=== PATIENT | male | born 1995 | race Caucasian/White ===

== ENCOUNTER 2021-07-21 12:58 | Emergency (ER) | payer OTHER, SELFPAY ==
--- NOTE | ~2021-07-21 | XR_ITS ---
EXAMINATION: XR hand RT min 3V INDICATION: Right hand pain, initial encounter TECHNIQUE: Three views of the right hand are obtained. COMPARISON: None available FINDINGS: There is an acute, traumatic, closed, oblique fracture in the distal shaft/head of the fift h metacarpal. There are 30 degrees of palmar angulation at the fracture site. Soft tissue swelling wynn rrounds the fracture. The joint spaces are maintained. No additional acute osseous abnormality is brian ntified. IMPRESSION: 1. Acute fracture of the distal shaft/head of the fifth metacarpal. Reviewed, dictated and finalized at location A. IT ASSOCIATE
[2021-07-21 13:06] VITALS: BP 151/78; PULSE 102; RESP 16; TEMP 37.3; O2SAT 98
--- NOTE | 2021-07-21 13:27 | ED.UPPEXIN ---
HPI - Extremity Injury (Upper) General Chief Complaint: Extremity Injury, Upper Stated Complaint: Right Hand Injury Source: patient Mode of arrival: ambulatory Limitations: no limitations History of Present Illness HPI narrative: 26-year-old male presented for complaint of right hand bruising and swelling after injury yesterday. He states he was playing football and struck his hand on a wall. Since then he has developed swelling, pain, and bruising. States pain is minimal. Has not taken anything for pain. Denies numbness, tingling, weakness of the hand. Unable to close hand for fist. Related Data Home Medications Medication Instructions Recorded Confirmed insulin lispro [Humalog U-100 15 unit SUBCUT TID 07/21/21 07/21/21 Insulin] Allergies Allergy/AdvReac Type Severity Reaction Status Date / Time No Known Allergies Allergy Verified 07/21/21 13:14 Review of Systems Review of Systems: CONSTITUTIONAL: Denies body aches, fever, chills, or sweats. EYES: Denies visual changes, redness, or discharge. ENT: Denies rhinorrhea, congestion, sore throat, or otalgia. CARDIOVASCULAR: Denies chest pain, palpitations, or edema. RESPIRATORY: Denies cough or dyspnea. GASTROINTESTINAL: Denies abdominal pain, nausea, vomiting, or diarrhea. GENITOURINARY: Denies dysuria or hematuria. SKIN: Denies rash, itching, or wounds. MUSCULOSKELETAL: Endorses right hand pain, swelling, bruising. NEUROLOGIC: Denies headache, numbness, tingling, or weakness. PSYCH: Denies depression or anxiety. All systems reviewed & are unremarkable except as noted in HPI and below PMFSH Comments At time of signature, I have reviewed and agree with nursing past medical, surgical, social and family history unless otherwise noted. Please see nursing chart for further information. There is no relevant family history pertinent to the presenting complaint Exam Narrative: GENERAL: Well-appearing, well-nourished, and in no acute distress. HEAD: Normocephalic EYES: PERRLA, conjunctivae clear NECK: Supple. CHEST: Speaks in full sentences. No respiratory distress. HEART: Regular rate and rhythm. Normal and equal peripheral pulses. EXTREMITIES: Right hand and digits of hand have normal strength and sensation. Range of motion limited, unable to close fist right hand. Moderate bruising and swelling to right dorsal hand No clubbing, cyanosis noted. Skin intact. Normal digital cascade with flexion of fingers. Normal sensation of each side of finger. Good capillary refill and radial pulse. Distal capillary refill less than 3 seconds. SKIN: Warn, dry, intact, pink. No rash NEURO: Alert and oriented x3. PSYCH: Normal mood and affect Course Course Level of Care: Express Care Visit Vital Signs Vital signs: Vital Signs Temperature 99.1 F 07/21/21 13:06 Pulse Rate 102 H 07/21/21 13:06 Respiratory Rate 16 07/21/21 13:06 Blood Pressure 151/78 H 07/21/21 13:06 Pulse Oximetry 98 07/21/21 13:06 Temperature 99.1 F 07/21/21 13:06 Pulse Rate 102 H 07/21/21 13:06 Respiratory Rate 16 07/21/21 13:06 Blood Pressure 151/78 H 07/21/21 13:06 Pulse Oximetry 98 07/21/21 13:06 Reviewed Procedures Orthopedic Splinting/Casting Injury #1: Splinting/Casting Date: 07/21/21 Splinting/Casting Time: 13:55 Side: right Upper Extremity Injury Location: hand Splint: customized in ED OCL: ulnar gutter Pre-Procedure Neuro Vascular Exam: normal Post-Procedure Neuro Vascular Exam: normal Additional Comments: applied by quality lab technician MDM - Extremity Injury (Upper) MDM Narrative Medical decision making narrative: Patient's injury and pain appear to be of musculoskeletal nature. No concerns for compartment syndrome. No concern for tendon or nerve injury. Patient is treatable on an outpatient basis. Xray reviewed with pt. Imaging Data Attestation: I personally reviewed and interpreted this imaging study as
== END 2021-07-21 14:21 | disposition home or self-care (01) ==
PROVIDERS: Emergency Provider Nurse Practitioner Family; PCP Internal Medicine Infectious Disease
DX: S62.326A Displaced fracture of shaft of fifth metacarpal bone, right hand, initial encounter for closed fracture (principal); W22.01XA Walked into wall, initial encounter; Y93.61 Activity, american tackle football
CPT/HCPCS: 29125; 73130; 99214; G0463

== ENCOUNTER 2021-07-24 16:04 | Outpatient (CLI) | payer OTHER, SELFPAY ==
--- NOTE | ~2021-07-24 | XR_ITS ---
EXAMINATION: XR hand RT min 3V DATE: 07/24/2021 16:24 INDICATION: Fracture of fifth metacarpal, post closed reduction. TECHNIQUE: 3 views of right hand were obtained. COMPARISON: Right hand radiographs 07/21/2021 FINDINGS: There is a comminuted fracture of neck of fifth metacarpal. The main distal fracture fragme nt demonstrates impaction and 29 degrees palmar angulation. Joint spaces are normal. Splint material is noted. IMPRESSION: 1. Comminuted fracture of neck of fifth metacarpal. Reviewed, dictated and finalized at location B. [employer]IO MANAGER
== END 2021-07-24 16:05 | disposition home or self-care (01) ==
PROVIDERS: PCP Internal Medicine Infectious Disease; Visit Provider Plastic Surgery
DX: S62.336D Displaced fracture of neck of fifth metacarpal bone, right hand, subsequent encounter for fracture with routine healing (principal); X58.XXXD Exposure to other specified factors, subsequent encounter
CPT/HCPCS: 73130

== ENCOUNTER 2022-01-06 17:41 | Emergency (ER) | payer OTHER, SELFPAY ==
--- NOTE | ~2022-01-06 | XR_ITS ---
EXAM: XR hand RT min 3V DATE: 01/06/2022 18:17 HISTORY: HYPEREXTENDED 01/03/22. ATTN: 5TH DIGIT PIP JT. . COMPARISON: 07/24/2021. FINDINGS: Normal mineralization. Mildly comminuted nondisplaced fracture of the fifth proximal phala nge. Old healed right fifth metacarpal fracture. No lytic or blastic lesion. Joint spaces are maintai tracie. No erosion or periosteal change. Soft tissues within normal limits. IMPRESSION: Nondisplaced, mildly comminuted fracture of the right fifth proximal phalange. Reviewed, dictated and finalized at location K. IMPRESSION: Nondisplaced, mildly comminuted fracture of the right fifth proxima l phalange.
[2022-01-06 17:57] VITALS: BP 135/92; PULSE 100; RESP 20; TEMP 36.8; O2SAT 99
--- NOTE | 2022-01-06 18:30 | ED.GENADULT ---
HPI - General Adult General Chief complaint: Extremity Injury, Upper Stated complaint: right pinkie finger injury History of Present Illness HPI narrative: Patient presents for evaluation of pain in the fifth digit of the right hand. He indicates that he was jumping into a pool on Saturday when his hand accidentally hit another individual. He bae tape the fourth and fifth digit of the right hand together. Denies any pain in the affected area. No paresthesias. No loss of ROM. He does report a popping sensation in the affected digit. He has a history of a boxer's fracture in the right hand for which she saw Dr. Zhou. Related Data Home Medications Medication Instructions Recorded Confirmed insulin lispro 100 unit/mL 15 unit subcut TID 07/21/21 07/21/21 subcutaneous cartridge (Humalog U-100 Insulin) Allergies Allergy/AdvReac Type Severity Reaction Status Date / Time No Known Allergies Allergy Verified 07/21/21 13:14 Review of Systems Review of Systems: CONSTITUTIONAL: Denies fever, chills, or sweats. EYES: Denies visual changes, redness, or discharge. ENT: Denies rhinorrhea, congestion, sore throat, or otalgia. CARDIOVASCULAR: Denies chest pain, palpitations, or edema. RESPIRATORY: Denies cough or dyspnea. GASTROINTESTINAL: Denies abdominal pain, nausea, vomiting, or diarrhea. GENITOURINARY: Denies dysuria or hematuria. SKIN: Reports popping sensation in fifth digit of right hand. Denies rash or itching. MUSCULOSKELETAL: Denies back pain, joint pain, or myalgia. NEUROLOGIC: Denies headache, numbness, dizziness, or weakness. PSYCHIATRIC: Denies anxiety or depression. [facility] Past Medical History Medical History Diabetes Surgical History Surgical History No pertinent past surgical history Family History Family History Mother Family history non-contributory Social History Social History Smoking status: Never smoker Alcohol intake: current Alcohol use details: social Substance use: never Living arrangements: with family Gender identity (if verbalized by the patient): Male Sexual Orientation (if Verbalized by the Patient): Straight or Heterosexual Exam Narrative: GENERAL: Well-appearing, well-nourished, and in no acute distress. HEAD: Normocephalic, atraumatic. EYES: PERRLA and EOMI. ENT: Nares clear, no rhinorrhea or epistaxis. Mucous membranes moist. Oropharynx without tonsillar hypertrophy exudate or other lesions. Bilateral TMs pearly vega nonbulging NECK: Supple. No adenopathy or masses. No carotid bruits or JVD CHEST: Clear to auscultation. No respiratory distress. No wheezes rales or rhonchi HEART: Regular rate and rhythm. No murmur heard. Normal peripheral pulses. ABDOMEN: Soft, nontender, nondistended, normal active bowel sounds. EXTREMITIES: Normal range of motion. No edema. No tenderness in fifth digit of right hand. +Crepitus in proximal phalanx of fifth digit of right hand SKIN: Warm, dry, no rash. NEURO: No focal deficits. Alert and oriented x3. PSYCH: Normal mood and affect. Course Course Emergency Course: This is a 26-year-old male who presented with complaints of pain in the fifth digit of the right hand. He had fracture of proximal phalanx on imaging. Provided with aluminum finger splint. Tolerated well. No pain. He has seen Dr. Zhou in the past so will come him Saturday for an appt. Pt in agreement with plan of care. Level of Care: Express Care Visit Vital Signs Vital signs: Vital Signs Temperature 36.8 C 01/06/22 17:57 Pulse Rate 100 01/06/22 17:57 Respiratory Rate 20 01/06/22 17:57 Blood Pressure 135/92 H 01/06/22 17:57 Pulse Oximetry 99 01/06/22 17:57 Oxygen Delivery Room Air 01/06/22 17:5
== END 2022-01-06 18:35 | disposition home or self-care (01) ==
PROVIDERS: Emergency Provider Nurse Practitioner; PCP Internal Medicine Infectious Disease
DX: S62.646A Nondisplaced fracture of proximal phalanx of right little finger, initial encounter for closed fracture (principal); W51.XXXA Accidental striking against or bumped into by another person, initial encounter; E11.9 Type 2 diabetes mellitus without complications
CPT/HCPCS: 29130; 73130; 99214; G0463